=== PATIENT | male | born 1960 | race Caucasian/White ===

== ENCOUNTER 2017-07-31 02:20 | Inpatient (IN) | payer OTHER ==
[~2017-07-31] VITALS: Ht 167.6 cm; Wt 102.5 kg
[2017-07-31] MEDS ORDERED: AMLODIPINE BESY10 M1 PO (08:17)
[2017-07-31] MEDS ORDERED: LIPITOR40 M1 PO (08:17)
[2017-07-31] MEDS ORDERED: BREO ELLIPTA 11 EACH IH (08:18)
[2017-07-31] MEDS ORDERED: LOSARTAN-HCTZ1 EAC2 PO (08:19)
[2017-07-31] MEDS ORDERED: GLEEVEC400 M1 PO (08:19)
[2017-07-31] MEDS ORDERED: RANEXA500 M1 PO (08:20)
[2017-07-31] MEDS ORDERED: PROTONIX40 M3 PO (08:20)
[2017-07-31] MEDS ORDERED: PROAIR HFA8.5 GM INH (08:22)
[2017-07-31] MEDS ORDERED: NITROSTAT0.4 M1 SL (08:23)
--- NOTE | 2017-07-31 08:31 | Admission Core Measures ---
Acute Coronary Syndrome (CM) ACS Core Measures Acute Coronary Syndrome Diagnosis No Congestive Heart Failure (NEW) CHF Core Measures Congestive Heart Failure Diagnosis No Cerebrovascular Accident (NEW) CVA Core Measures CVA/TIA Diagnosis No Venous Thromboembolism VTE Core Joss (View Protocol) VTE Risk Factors Surgery No Mechanical VTE Prophylaxis d/t N/A MechProphylax Ordered No VTE Pharm Prophylaxis d/t NA PharmProphylax ordered Problem List As ranked by this Provider includes Assessment & Plan 1. Primary osteoarthritis of left hip HOME MEDS Home Med List Albuterol Sulfate (Proair Hfa) 90 MCG HFA.AER.AD 2 PUF INH Q4-6 PRN PRN ASTHAMA (Reported) Amlodipine Besylate 10 MG TABLET 1 TAB PO DAILY BP (Reported) Atorvastatin Calcium (Lipitor) 40 MG TABLET 1 TAB PO DAILY CHOL (Reported) Fluticasone/Vilanterol (Breo Ellipta 100-25 Mcg INH) 100 MCG-25 MCG/DOSE BLST.W.DEV 1 IH DAILY ASTHMA (Reported) Imatinib Mesylate (Gleevec) 400 MG TABLET 1 PO DAILY CML (Reported) Losartan/Hydrochlorothiazide (Losartan-Hctz 100-25 MG Tab) 100 MG-25 MG TABLET 1 TAB PO DAILY BP (Reported) Nitroglycerin (Nitrostat) 0.4 MG TAB.SUBL 1 TAB SL AD PRN CHEST PAIN ( Reported) Pantoprazole Sodium (Protonix) 40 MG TABLET.DR 1 TAB PO DAILY REFLUX ( Reported) Ranolazine (Ranexa) 500 MG TAB.ER.12H 1 TAB PO BID RESTLESS LEG (Reported)
--- NOTE | 2017-07-31 08:55 | Surgical Discharge Summary ---
Visit Information Visit Dates Admission Date: 07/31/17 History of Present Illness Chief Complaint: left hip pain Surgical History Pertinent Surgical History: hip replacement Review of Systems: see H&P Hospital Course Course Attending Physician: Chicho Bowie MD Primary Care Physician: Marco WINTERS,Asher Cole Hospital Course: Patient was admitted to the hospital for an elective total joint replacement. Procedure was tolerated well and patient was transferred to a general surgical floor. Diet was advanced and tolerated. Physical therapy performed evaluation and treatment. At time of hospital discharge, vital signs were stable, neurovascular status was intact, and pain was controlled with the use of oral pain medications. Allergies: Coded Allergies: No Known Drug Allergies (NKDA 07/28/17) Significant Procedures: left total hip arthroplasty Disposition Summary Disposition Principal Diagnosis: left hip primary osteoarthritis Additional Diagnosis: Same, s/p left total hip arthroplasty Discharge Disposition: home health services Discharge Instructions General Discharge Information Code Status: Full Code Patient's Diet: regular Patient's Activity: WBAT Follow-Up Instructions/Appts: Follow up with Dr. Bowie in 6 weeks from date of surgery. Please call his office to schedule/confirm this appointment.
[2017-07-31] MEDS ORDERED: DILAUDID2 M1 PO (11:18)
[2017-07-31] MEDS ORDERED: ASPIRIN EC325 M2 PO (11:18)
[2017-07-31] MEDS ORDERED: COLACE100 M1 PO (11:18)
[2017-07-31] MEDS ORDERED: MIRALAX17 G1 PO (11:18)
[2017-07-31] MEDS ORDERED: MS CONTIN15 M3 PO (11:18)
--- NOTE | 2017-07-31 11:20 | Patient Discharge Instructions ---
Discharge Instructions General Discharge Information You were seen/treated for: left hip pain, osteoarthritis You had these procedures: left total hip arthroplasty Watch for these problems: Increasing pain despite the use of pain medication Increasing redness, warmth or swelling Drainage of any type from incision Inability to bear weight on operative leg Persistent nausea and vomiting Fever greater than 101.5 degrees Other wound care: Please keep wound clean and dry. No ointments or lotions of any type on or near incision. Your dressing will be changed by your nurse on the second day after your surgery. Daily dry dressing changes are recommended each day thereafter. Do not soak your wound- no tub baths/swimming. You may shower 48hr after surgery. Special Instructions: Aspirin: You are taking this medication to help prevent blood clot formation. Please take with food to protect your stomach lining. Please take as directed ( 81mg twice daily for 3 weeks) Indocin (indomethacin): Take 3 times per day for 10 days. Protonix (pantoprazole): Take this medication while on high dose NSAIDs to protect your stomach lining. Constipation: Pain medication can cause constipation. It is recommended that you take Colace and Miralax each day. Discontinue this medication if you develop loose stool or diarrhea. If you wish to continue this medication, it is available over the counter. If you are unable to move your bowels or unable to pass gas and are developing bloating, nausea, or vomiting as a result, please contact your doctor. Diet Recommended Diet: Regular Activity Activity Limited to: Weight bear as tolerated Additional ACTIVITY Info: use assistive devices as needed Acute Coronary Syndrome Inclusion Criteria At DC or during hospital stay patient has or had the following: ACS DIAGNOSIS No Discharge Core Measures Meds if any: Prescribed or Continued at Discharge Meds if any: NOT Prescribed or Continued at Discharge Congestive Heart Failure Inclusion Criteria At DC or during hospital stay patient has or had the following: CHF DIAGNOSIS No Discharge Core Measures Meds if any: Prescribed or Continued at Discharge Meds if any: NOT Prescribed or Continued at Discharge Cerebrovascular accident Inclusion Criteria At DC or during hospital stay patient has or had the following: CVA/TIA Diagnosis No Discharge Core Measures Meds if any: Prescribed or Continued at Discharge Meds if any: NOT Prescribed or Continued at Discharge Venous thromboembolism Inclusion Criteria VTE Diagnosis No VTE Type NONE VTE Confirmed by (Test) NONE Discharge Core Measures - Per Current guidelines, there needs to be overlap - treatment for the first 5 days of Warfarin therapy. - If discharged on Warfarin prior to 5 days of - overlap therapy, the patient will need to be - assessed for post discharge needs including - *Post discharge parental anticoagulation - *Warfarin and/or parental anticoagulation education - *Follow up date to check INR post discharge At least 5 days overlap therapy as Inpatient No Meds if any: Prescribed or Continued at Discharge Note: Overlap Therapy is Warfarin and Anticoagulant Meds if any: NOT Prescribed or Continued at Discharge
[2017-07-31] MEDS ORDERED: LO-DOSE ASPIRIN81 MG PO (12:14)
[2017-07-31] MEDS ORDERED: INDOMETHACIN25 M1 PO (12:14)
--- NOTE | 2017-07-31 14:51 | RADIOLOGY REPORT ---
EXAMINATION: CR HIP, LEFT CLINICAL INFORMATION: Status post left total hip arthroplasty. COMPARISON: None TECHNIQUE: Two views of the left hip. FINDINGS: Total left hip arthroplasty is in place and appears intact. Bone detail on the crosstable lateral view at the level of the hip joint is limited. No definite [place] bone fracture or hardware failure is seen. Alignment is anatomic. IMPRESSION: Slightly limited exam. Total hip arthroplasty appears intact with no evidence of hardware failure or [place] bone fracture seen.
--- NOTE | 2017-07-31 14:56 | Operative Report ---
Operative/Inv Procedure Report Surgery Date: 07/31/17 Name of Procedure: Left total hip replacement Pre-Operative Diagnosis: Primary left hip DJD Post-Operative Diagnosis: Same Estimated Blood Loss: 300 Surgeon/Pulverizer Operator: Jamir WINTERS,Chicho Iglesias Anesthesia: block Operative/Procedure Note Note: Description of Procedure: The patient was taken to the operating room and positively identified. After induction of spinal anesthesia and administration of appropriate pre-operative antibiotics, the patient was positioned supine on the operating room table and all bony prominences were well padded. After performing a surgical timeout, the left lower extremity was prepped and draped in the usual sterile fashion. A direct anterior approach was made to the left hip. The incision was carried sharply through superficial soft tissues to the level of the fascia. Meticulous hemostasis was maintained with Bovie electocautery. The fascia over the tensor fascia kendra muscle was opened sharply and the interval between the TFL and the sartorius was entered bluntly taking care to stay lateral to the lateral femoral cutaneous nerve. Retractors were placed around the femoral neck and the pericapsular fat was identified. The ascending branches of the lateral femoral circumflex vessels were identified and carefully coagulated. The pericapsular fat and anterior capsule were then resected. A napkin ring osteotomy was performed and the femoral head was removed without difficulty. Attention was then turned to the acetabulum. After appropriate placement of retractors, the acetabulum was exposed. Soft tissue was cleaned from the acetabular margin and notch. Overhanging osteophytes were removed and the teardrop was exposed. The acetabulum was then sequentially reamed to accept a 56 mm [place] Tritanium hemispherical solid shell. This was impacted into place in the appropriate position and fitted with a 32 mm Trident X3 zero degree polyethylene insert. Attention was then turned to the femur. After performing the appropriate ligament releases, the proximal femur was exposed. It was then sequentially broached to accept a size 5 Love Anato stem. This was trialed for leg length and stability. The trial component was removed and the final component was impacted into place. The trunnion was carefully cleaned and fit with a 32 mm, - 4 Biolox delta ceramic femoral head. The hip was reduced and put through a full range of motion and found to be stable. The articular space was then irrigated with sterile saline. The periarticular soft tissues were infilitrated with Marcaine. The fascial layer was closed with interrupted #1 vicryl suture and the skin was re-approximated with interrupted 2 -0 vicryl. The skin was closed with a running 3-0 V-Lock suture. Steri-strips and a sterile dressing were applied. The patient was awakened and taken to the recovery room in satisfactory condition.
[2017-07-31 15:02] VITALS: BP 130/70
--- NOTE | 2017-07-31 15:13 | PN- Orthopedic ---
Subjective Subjective: POC feeling good. would like to dc today. awaiting PT eval, due to void postop, awaiting meal. no pain, no n/v/cp/sob Objective Vital Signs and I&Os Vital Signs Date Time Temp Pulse Resp B/P B/P Pulse O2 O2 Flow FiO2 Mean Ox Delivery Rate 07/31 1502 97.3 67 16 130/70 98 Room Air Intake & Output 07/31 1600 07/31 0800 07/31 0000 07/30 1600 07/30 0800 07/30 0000 Intake Total Output Total Balance Patient 226 lb Weight Weight Reported by Patient Measurement Method Physical Exam: GEN- NAD CARD- S1S2 RRR PULM- CTAB ABD-obese soft nt EXT- L hip dressing cdi, gross sensation intact, +dorsi/plantar flexion, palp dp bl, alps on Assessment/Plan Assessment/Plan A- POD0 sp Left JACK, stable, awaiting PT eval. P- ASA 81mg BID x3 weeks Indocin 25mg TID x10 days prn pain meds reg diet as tolerated dtv postop, hl once voiding and taking po dc planning- await pt recs will dw attending Core Measures Venous Thromboembolism VTE Risk Factors Surgery No Mechanical VTE Prophylaxis d/t N/A MechProphylax Ordered No VTE Pharm Prophylaxis d/t NA PharmProphylax ordered
== END 2017-07-31 18:00 | disposition home health service (06) | DRG 470 ==
LOC: SDA 02:20 → ENRESERV 13:40 → ENTRNSPT 14:05 → EDTRNSPT 14:32 → EDTRNSPTSTS 14:32 → 2NA 14:39 → CMPTRNSPT 14:43 → ENTRNSPT 17:48 → 2NA 18:00 → EDTRNSPTSTS 18:03 → EDTRNSPT 18:03 → CMPTRNSPT 18:35
PROC: 0SRB04A Replacement of Left Hip Joint with Ceramic on Polyethylene Synthetic Substitute, Uncemented, Open Approach (ICD-10-PCS; principal; 2017-07-31)
DX: M16.12 Unilateral primary osteoarthritis, left hip (principal); E66.9 Obesity, unspecified; M25.752 Osteophyte, left hip; Z68.36 Body mass index [BMI] 36.0-36.9, adult; J45.909 Unspecified asthma, uncomplicated; E78.5 Hyperlipidemia, unspecified; I25.10 Atherosclerotic heart disease of native coronary artery without angina pectoris
CPT/HCPCS: 2NAP; 73502-LT; 97116-GO; 97161-GP; J0690; J0735; J2405; J2550; J3490; J7042